=== PATIENT | male | born 1950 | race Caucasian/White ===

== ENCOUNTER 2017-04-03 10:40 | Outpatient (CLI) | payer MEDICARE, OTHER ==
[2017-04-03 17:05] LABS: Band 2 % (5-11); Eosinophils 6 % (0-10); Lymphocytes 16 % (21-51); MDiff Complete? YES; Mean Corpuscular HGB CONC 34.8 g/dL (32.0-36.0); Mean Corpuscular Volume 94.8 fl (80.0-94.0); Mean Platelet Volume 5.9 fL (7.4-10.4); Monocytes 9 % (0-10); Neutrophil 67 % (42-75); Platelet Count 258 thou/uL (130-400); RBC Distribution Width 12.1 % (11.5-14.5); Red Blood Cell (RBC) Count 5.15 mill/uL (4.70-6.10); White Blood Cell (WBC) Count 7.9 thou/uL (4.8-10.8)
[2017-04-03 17:21] LABS: Hemoglobin A1c 6.8 % (4.0-6.0)
[2017-04-03 17:40] LABS: Albumin (w/Testosterone Panel) 4.1 g/dL
[2017-04-03 17:42] LABS: ALT (SGPT) 157 U/L (8-55); AST (SGOT) 123 U/L (5-34); Alkaline Phosphatase 54 U/L (40-150); Anion Gap 15 mmol/L (10-20); BUN (Urea Nitrogen) 31 mg/dL (8.4-25.7); Bilirubin, Total 0.6 mg/dL (0.2-1.2); Calc. Creatinine Clearance 0 mL/min (70-130); Calcium 10.2 mg/dL (7.8-10.44); Carbon Dioxide 23 mmol/L (23-31); Cardiac Risk 3.8 (Less than 4.5); Chloride 105 mmol/L (98-107); Cholesterol 184 mg/dl (< 200 Desired); Estimated GFR-MDRD 52; Globulin 4.5 g/dL (2.4-3.5); Glucose 162 mg/dL (80-115); HDL Cholesterol 48 mg/dL (>60 Neg Risk); LDL Cholesterol, Calculated 114 mg/dL; Potassium 5.5 mmol/L (3.5-5.1); Protein, Total 8.5 g/dL (5.8-8.1); Sodium 137 mmol/L (136-145); Triglycerides 112 mg/dL (Less than 150)
[2017-04-03 18:52] LABS: Sex Hormone Binding Globulin 67.9 nmol/L (11-78); Testosterone, Free 64.9 pg/mL (47-244)
[2017-04-03 18:54] LABS: PSA-Asymptomatic (SCREENING) 1.34 ng/mL (0-4.0); Thyroid Stimulating Hormone 1.8791 uIU/mL (0.35-4.94)
== END 2017-04-03 10:41 | disposition home or self-care (01) ==
LOC: LABLEX 10:40
PROVIDERS: ATTEND Family Medicine
DX: Z12.5 Encounter for screening for malignant neoplasm of prostate (principal); I10 Essential (primary) hypertension; E11.9 Type 2 diabetes mellitus without complications; I25.10 Atherosclerotic heart disease of native coronary artery without angina pectoris; N28.9 Disorder of kidney and ureter, unspecified; R80.9 Proteinuria, unspecified; R53.83 Other fatigue
CPT/HCPCS: 80053; 80061; 81001; 83036; 84270; 84403; 84443; 85025; 87086; G0103

== ENCOUNTER 2017-04-03 10:40 | Outpatient (CLI) | payer MEDICARE, BC ==
[2017-04-03 17:19] LABS: Bilirubin Negative (Negative); Blood, Urine Large (Negative); Glucose, Urine (Dipstick) 100 mg/dL (Negative); Leukocyte Negative (Negative); Nitrite Negative (Negative); Protein, Urine (Dipstick) > or equal to 300 mg/dL (Neg-Trace); Specific Gravity, Urine 1.025 (1.005-1.030); Urobilinogen 0.2 mg/dL (0.2-1.0)
[2017-04-03 17:23] LABS: Bacteria/HPF None Seen HPF (None Seen); Clarity Opaque (Clear); RBC/HPF GREATER THAN 50-TNTC HPF (0-3); Squamous Epithelial 0-3 HPF (0-3); WBC/HPF 0-3 HPF (0-3)
== END 2017-04-03 10:41 | disposition home or self-care (01) ==
LOC: LABLEX 10:40
PROVIDERS: ATTEND Family Medicine
DX: R31.0 Gross hematuria (principal)
CPT/HCPCS: 81001; 87086

== ENCOUNTER 2025-06-12 13:54 | Emergency (ER) | payer MEDICARE ==
[2025-06-12 14:43] LABS: Hematocrit 36.9 % (42.0-52.0); Hemoglobin 13.5 g/dL (14.0-18.0); Mean Corpuscular Hemoglobin 29.4 pg (27.0-31.0); Mean Corpuscular Volume 80.5 fl (78.0-98.0); Platelet Count 226 10x3/uL (130-400); Red Blood Cell (RBC) Count 4.59 mill/uL (4.70-6.10); White Blood Cell (WBC) Count 23.3 10x3/uL (4.8-10.8)
[2025-06-12 14:50] LABS: ALT (SGPT) 15 U/L (Less than 45); AST (SGOT) 24 U/L (11-34); Albumin 3.8 g/dL (3.1-4.5); Alkaline Phosphatase 51 U/L (40-110); Anion Gap 18 mmol/L (10-20); BUN (Urea Nitrogen) 38 mg/dL (8.4-25.7); Bilirubin, Total 0.8 mg/dL (0.3-1.2); Calc. Creatinine Clearance 0 mL/min (70-130); Calcium 9.1 mg/dL (7.8-10.44); Carbon Dioxide 22 mmol/L (23-31); Chloride 99 mmol/L (98-107); Globulin 3.3 g/dL (2.4-3.5); Glucose 154 mg/dL (83-110); Potassium 3.9 mmol/L (3.5-5.1); Sodium 135 mmol/L (136-145)
[2025-06-12 15:03] LABS: MDiff Complete? YES
[2025-06-12] MEDS ORDERED: Cefepime 2 GM VIAL ONE (15:51)
[2025-06-12 16:40] LABS: Glucose, Urine (Dipstick) 500 mg/dL (Negative); Leukocyte Negative (Negative); Protein, Urine (Dipstick) Negative (Neg-Trace); Specific Gravity, Urine 1.010 (1.005-1.030)
[2025-06-12 16:46] LABS: Bacteria/HPF Rare-Few HPF (None Seen); CAUTI Indications for Culture Dysuria,urgency,freq; RBC/HPF None Seen HPF (0-3); WBC/HPF 0-3 HPF (0-3)
[2025-06-12 16:47] LABS: Urine Culture Reflex No No
[2025-06-12] MEDS ORDERED: Aspirin Chewable 81 MG TAB ONE (18:57)
[2025-06-13 11:42] LABS: Troponin I 0.013 ng/mL (< 0.028)
== END 2025-06-12 21:27 | disposition short-term general hospital (02) ==
LOC: BURERS 13:54
DX: R00.0 Tachycardia, unspecified (principal); I95.9 Hypotension, unspecified; D72.829 Elevated white blood cell count, unspecified; I10 Essential (primary) hypertension; E11.9 Type 2 diabetes mellitus without complications; E78.5 Hyperlipidemia, unspecified; K21.9 Gastro-esophageal reflux disease without esophagitis; Z79.84 Long term (current) use of oral hypoglycemic drugs; Z79.899 Other long term (current) drug therapy
CPT/HCPCS: 71045; 80053; 81001; 83605; 83880; 84484; 85025; 87040; 87428; 93005; J0692; 36415; 96361; 96365